=== PATIENT | female | born 1955 | race Caucasian/White ===

== ENCOUNTER 2022-09-11 13:43 | Outpatient (CLI) | payer MEDICARE, BC, SELFPAY ==
--- NOTE | 2022-09-11 14:00 | CRLHL7_ITS ---
For Patients: As a result of the Century Cures Act, medical imaging exams and procedure reports are released immediately into your electronic medical record. You may view this report before your referring provider. If you have questions, please contact your health care provider. DXA BONE MINERAL DENSITY STUDY Reason for exam: Osteoporosis. Current height (in): 67. Weight (lb): 130. Menopause age: 43. Ethnicity: White. 1. Have you had a previous hip or vertebral fracture? No. 2. Have you had any fractures during your adult life which did not result from significant trauma (e.g., auto accident)? No. 3. Did either of your parents have a hip fracture? No. 4. Do you smoke? No. 5. Have you ever taken Glucocorticoids? No. 6. Do you have rheumatoid arthritis? No. 7. Do you have secondary osteoporosis? No. 8. Do you drink 3 or more alcoholic drinks per day? No. 9. Are you being treated for osteoporosis? Yes. 10. Have you ever taken any of the following medications: Actonel, Evista, Fosamax, Miacalcin, Reclast, Boniva, Forteo, HRT (i.e. estrogen/hormone therapy), Protelos, Prolia, Vitamin D, Calcium, other ??? please specify. ANSWER: Yes, Fosamax, vitamin D, calcium, HRT. 11. Do you have any of the following medical conditions: Anorexia or bulimia, asthma or emphysema, end stage renal disease, hyperparathyroidism, any seizure disorders, cancer, inflammatory bowel diseases, hysterectomy, other ??? please specify. ANSWER: Yes, cancer, hysterectomy. 12. What was your maximum height (inches)? 67.5. 13. Do you perform weight bearing exercise regularly? Yes. 14. Do you regularly consume dairy products? No. 15. Do you drink caffeinated beverages? Yes. 16. At what age did your period start? 14. 17. Are you premenopausal? No. 18. How many full term pregnancies have you had? 2. 19. Have you ever missed your period for more than 6 months in a row (not including or menopause)? Yes. TECHNIQUE: Bone mineral density study was performed using the [facility]. FINDINGS: The results of the study expressed as bone mineral density (BMD) are as follows: Lumbar spine L1 to L4: BMD: 0.530 g/cm2. T-score: -4.7. Z-score: -2.7. Neck Left: BMD: 0.538 g/cm2. T-score: -2.8. Z-score: -1.1. Right: BMD: 0.538 g/cm2. T-score: -2.8. Z-score: -1.1. Total Left: BMD: 0.644 g/cm2. T-score: -2.4. Z-score: -1.0. Right: BMD: 0.642 g/cm2. T-score: -2.5. Z-score: -1.1 IMPRESSION: Osteoporosis. *Comparison exams done prior to 04/2020 were performed on different unit, [employer]. Arpit Escobar M.D. Diagnostic/Nuclear Medicine Radiologist [email or web address] LUCY/Dictated by: Arpit Escobar MD @ 09/11/2022 8:16:00 PM (Electronically Signed)
== END 2022-09-11 13:44 | disposition home or self-care (01) ==
LOC: RAD 13:43
PROVIDERS: PCP Internal Medicine; Visit Provider Internal Medicine
DX: M81.0 Age-related osteoporosis without current pathological fracture (principal)
CPT/HCPCS: 77080

== ENCOUNTER 2023-07-02 09:00 | Outpatient (RCR) | payer MEDICARE, BC, SELFPAY ==
--- NOTE | 2023-05-13 18:59 | PT.OPEX ---
[facility] Eval PT [facility] Outpatient Eval Start: 12/20/22 09:47 Freq: Status: Active Protocol: Document 05/13/23 09:59 ENM (Rec: 05/13/23 16:40 ENM [id number]) E-signed By Deidra Lizarraga DPT Physical Therapy Outpatient Evaluation Insurance Information Recert Due Date 08/05/23 Insurance Name Medicare B Medical Diagnosis bursitis of right shoulder Treating Diagnosis right shoulder pain, decreased shoulder ROM, decreased shoulder strength Referring MD Ramirez Subjective Subjective Patient presents to PT for complaints of right shoulder pain. She had an xray with no significant findings. Had an MRI which showed increased interstitial signal within the supraspinatus, without high- grade partial-thickness or full-thickness tearing. Patient states that pains are not present in the middle of the night and it isn't as often now. She was initially seen in PT back in December for shoulder pains and has continued with her exercises. Has no issues with reaching into the cupboards now but will feel a discomfort with reaching behind the back or taking clothes on/off. Pains are well managed but she often avoids aggravating movements. Previous HEP that she has been keeping up includes shoulder IR and ext AAROM with cane, bent over row, scaption with weight, shoulder flexion with weight, scap retract with ER Pain Comments at its best: 0-1/10 at its worse: 2/10 easing: rest aggravating: reaching behind the back Current Work Status Retired Objective Other/Pertinent Objective ROM: AROM shoulder flexion L 154 R 152 abduction L 163 R 167 IR L T4 R T9 + for pain ER base of skull cross body + for pain on R passive shoulder IR no pain at 0 deg, + for pain at 90 passive ER painful at 0 deg and 90s degs Cervical flexion, ext, SB, ROT WNL Strength: shoulder flexion L 4+/5 R 5/5 shoulder abduction 5/5 B shoulder IR0 L 5/5 R + for pain 4+/5 shoulder ER0 L 5/5 R + for pain 4+/5 similar pain and weakness ER at 90 degs Trap testing I 4-/5 B + for pain on R T 3+/5 B Palpation/joint mobility: posterior and inferior glide of GHJ normal mobility on L, less mobile with posterior glide of R GHJ on R compared to L + for pain with palpation of anterior and medial right shoulder Special tests: joby ayala - open can - empty can- obriens + for pain B, slightly less pain with ER Functional Test Performed & Score SPADI: pain 8/50 16% disability total Assessment Assessment/Impression Patient is a 67 year old female presenting with right shoulder pain. She was seen in PT earlier this year for similar pains and has continued to work on her home programs. Pains are less overall and do not limit her ability to reach or sleep at night anymore. Their primary complaint is of pain that is still present when reaching behind her back or having to don/doff her jacket. Xray negative for significant findings and MRI showed tendinopathy of supraspinatus. Upon assessment patients concordant pains brought on with active and passive shoulder IR, cross body adduction and obriens shoulder special tests. Patient tender to palpation along anterior and medial right shoulder. Pain and weakness noted with shoulder IR and ER MMT at zero and 90 degs of abduction. Noted global scapular weakness with trapezius testing most significant in middle trap. Anai would greatly benefit from skilled PT to address impairments stated above in order to perform all self cares/ADLS and household duties without significant discomfort or difficulty. Primary Functional Limitations getting clothes on/off, reaching behind the back Plan of Care Rehabilitation Potential Good Physical Therapy Goals In 4-6 visits: 1. Patient will be IND with HEP and self management of symptoms 2. Patient will display pain free functional right shoulder ROM within 2 levels of contralateral side to perform all self cares and ADLS without significant discomfort or difficulty 3. Patient will display improved postures and scapular engagement with overhead household activities to decrease risk of reoccurrence of symptoms 4. Patient will be able to get jacket on/off without pain 5/ 7 days of the week to progress toward PLOF Coordination/Communication With Referral Source Treatment Plan/Direct Interventions Electrical Stimulation,Ice/ Cold/Vasopneumatic,Joint Mobilization,Manual Therapy, Neuromuscular Re-ed,Self-Care/ Home Management,Therapeutic Activities,Therapeutic Exercises Frequency/Duration 1x a week for 4-6 visits Patient Will Be Discharged From Therapy Completion of LTG(s), Independent w/HEP Evaluation Billing Untimed Code Treatment Minutes 25 Complexity Low Certification Information Initial Certification Date 05/13/23 Ending Certification Date 08/05/23 Provider Signature Shows Agreement With POC & Medical Necessity Physician Signature & Date Requested Please Sign/Date Here Physician Comment/Change : Physician NPI Number #
== END 2023-07-21 14:34 | disposition home or self-care (01) ==
PROVIDERS: PCP Internal Medicine; Visit Provider Internal Medicine
DX: M75.21 Bicipital tendinitis, right shoulder (principal); M67.911 Unspecified disorder of synovium and tendon, right shoulder; M75.51 Bursitis of right shoulder; M25.511 Pain in right shoulder; R53.1 Weakness; Z74.09 Other reduced mobility; Z51.89 Encounter for other specified aftercare
CPT/HCPCS: 97110; 97140; 97161

== ENCOUNTER 2023-08-25 08:15 | Outpatient (CLI) | payer MEDICARE, BC, SELFPAY | END 2023-08-25 08:16 | disposition home or self-care (01) | LOC: NFLDREF 08-28 10:17 | PROVIDERS: PCP Internal Medicine; Referring Provider Internal Medicine; Visit Provider Internal Medicine | DX: M81.0 Age-related osteoporosis without current pathological fracture (principal) | CPT/HCPCS: 82306 ==

== ENCOUNTER 2023-11-27 11:12 | Outpatient (CLI) | payer MEDICARE, BC, SELFPAY ==
--- NOTE | 2023-11-27 11:30 | CRLHL7_ITS ---
For Patients: As a result of the Century Cures Act, medical imaging exams and procedure reports are released immediately into your electronic medical record. You may view this report before your referring provider. If you have questions, please contact your health care provider. BILATERAL SCREENING MAMMOGRAM WITH COMPUTER-AIDED DETECTION AND TOMOSYNTHESIS TECHNIQUE: CC and MLO views were obtained. These mammographic images have been obtained using full-field digital technique. These mammographic images were interpreted with the benefit of computer-aided detection. Breast Tomosynthesis was used in this interpretation. COMPARISON FILM: 08/14/22, 08/10/21, 08/02/20. FINDINGS: There are scattered areas of fibroglandular density. IMPRESSION: There is no radiographic evidence for malignancy. ASSESSMENT: BI-RADS Category 1: Negative RECOMMENDATION: Routine screening mammogram in 1 year. A lay language report of this examination will be provided to the patient. Angelo Carter M.D. Diagnostic Radiologist [email or web address] SP/Dictated by: Angelo Carter MD @ 12/02/2023 10:57:00 AM (Electronically Signed)
== END 2023-11-27 11:13 | disposition home or self-care (01) ==
LOC: MAMMO 11:13
PROVIDERS: PCP Internal Medicine; Visit Provider Internal Medicine
DX: Z12.31 Encounter for screening mammogram for malignant neoplasm of breast (principal)
CPT/HCPCS: 77063; 77067

== ENCOUNTER 2024-04-14 09:54 | Outpatient (CLI) | payer MEDICARE, BC, SELFPAY | END 2024-04-14 09:55 | disposition home or self-care (01) | PROVIDERS: PCP Internal Medicine; Visit Provider Registered Nurse | DX: R10.9 Unspecified abdominal pain (principal) | CPT/HCPCS: 80053; 83690; 86140; 87086 ==

== ENCOUNTER 2024-05-11 15:00 | Outpatient (CLI) | payer MEDICARE, BC, SELFPAY | END 2024-05-11 15:01 | disposition home or self-care (01) | PROVIDERS: PCP Internal Medicine; Visit Provider Internal Medicine | DX: R10.13 Epigastric pain (principal) | CPT/HCPCS: 84132; 84450 ==

== ENCOUNTER 2024-08-31 08:00 | Outpatient (CLI) | payer MEDICARE, BC, SELFPAY | END 2024-08-31 08:01 | disposition home or self-care (01) | PROVIDERS: PCP Internal Medicine; Referring Provider Internal Medicine; Visit Provider Internal Medicine | DX: M81.0 Age-related osteoporosis without current pathological fracture (principal) | CPT/HCPCS: 82306 ==

== ENCOUNTER 2024-09-29 14:14 | Outpatient (CLI) | payer MEDICARE, BC, SELFPAY ==
--- NOTE | 2024-09-29 14:30 | CRLHL7_ITS ---
For Patients: As a result of the Century Cures Act, medical imaging exams and procedure reports are released immediately into your electronic medical record. You may view this report before your referring provider. If you have questions, please contact your health care provider. DXA BONE MINERAL DENSITY STUDY Reason for exam: Osteoporosis. Current height (in): 67. Weight (lb): 135. Menopause age: 43. Ethnicity: White. 1. Have you had a previous hip or vertebral fracture? No. 2. Have you had any fractures during your adult life which did not result from significant trauma (e.g., auto accident)? No. 3. Did either of your parents have a hip fracture? No. 4. Do you smoke? No. 5. Have you ever taken Glucocorticoids? No. 6. Do you have rheumatoid arthritis? No. 7. Do you have secondary osteoporosis? No. 8. Do you drink 3 or more alcoholic drinks per day? No. 9. Are you being treated for osteoporosis? Yes. 10. Have you ever taken any of the following medications: Actonel, Evista, Fosamax, Miacalcin, Reclast, Boniva, Forteo, HRT (i.e., estrogen/hormone therapy), Protelos, Prolia, Vitamin D, Calcium, other ??? please specify. ANSWER: Yes, Fosamax (i.e., alendronate), vitamin D, and calcium. 11. Do you have any of the following medical conditions: Anorexia or bulimia, asthma or emphysema, end stage renal disease, hyperparathyroidism, any seizure disorders, cancer, inflammatory bowel diseases, hysterectomy, other ??? please specify. ANSWER: Yes, cancer and hysterectomy. 12. What was your maximum height (inches)? 67.5. 13. Do you perform weight bearing exercise regularly? Yes. 14. Do you regularly consume dairy products? No. 15. Do you drink caffeinated beverages? Yes. 16. At what age did your period start? 14. 17. Are you premenopausal? No. 18. How many full-term pregnancies have you had? 2. 19. Have you ever missed your period for more than 6 months in a row (not including or menopause)? Yes. TECHNIQUE: Bone mineral density study was performed using the [employer]. FINDINGS: The results of the study expressed as bone mineral density (BMD) are as follows: Lumbar spine L1 to L4: BMD: 0.584 g/cm2. T-score: -4.2. Z-score: -2.1 Neck Left: BMD: 0.560 g/cm2. T-score: -2.6. Z-score: -0.8 Right: BMD: 0.547 g/cm2. T-score: -2.7. Z-score: -0.9 Total Left: BMD: 0.630 g/cm2. T-score: -2.6. Z-score: -1.0 Right: BMD: 0.652 g/cm2. T-score: -2.4. Z-score: -0.9 IMPRESSION: Osteoporosis. *Comparison exams done prior to 04/2020 were performed on different unit, [employer]. COMPARISON: Compared with scan of 09/11/2022, the bone mineral density has increased by 10.2 percent at the spine and decreased by 0.3 percent at the hip. Angelo Carter M.D. Diagnostic Radiologist [email or web address] simpson/Dictated by: Angelo Carter MD @ 10/01/2024 12:27:00 PM (Electronically Signed)
== END 2024-09-29 14:15 | disposition home or self-care (01) ==
LOC: RAD 14:15
PROVIDERS: PCP Internal Medicine; Visit Provider Internal Medicine
DX: M81.0 Age-related osteoporosis without current pathological fracture (principal)
CPT/HCPCS: 77080

== ENCOUNTER 2024-10-12 14:15 | Outpatient (CLI) | payer MEDICARE, BC, SELFPAY | END 2024-10-12 14:16 | disposition home or self-care (01) | LOC: NFLDREF 10-13 10:50 | PROVIDERS: PCP Internal Medicine; Referring Provider Internal Medicine; Visit Provider Internal Medicine | DX: M81.0 Age-related osteoporosis without current pathological fracture (principal) | CPT/HCPCS: 82310; 82565 ==

== ENCOUNTER 2024-10-19 14:11 | Outpatient (RCR) | payer MEDICARE, BC, SELFPAY ==
--- NOTE | 2024-10-15 14:13 | PC.NURSE ---
Diagnosis: Osteoporosis
--- NOTE | 2024-10-15 14:29 | URNOTE ---
Request received for authorization for Zolendronic Acid (Reclast) ([id number]). Prior authorization is not required as services are based on medical necessity and follow Medicare guidelines.
[2024-10-19 14:24] VITALS: BP 122/85; PULSE 72; RESP 16; TEMP 36.6; O2SAT 98
[2024-10-19] MEDS: ZOLEDRONIC ACID 5 mg/100 ml 100 ML 220 MG IVPB (14:48)
== END 2025-04-17 23:59 | disposition home or self-care (01) ==
LOC: CCIC 14:11
PROVIDERS: PCP Internal Medicine; Referring Provider Internal Medicine; Visit Provider Clinical Nurse Specialist
DX: M81.0 Age-related osteoporosis without current pathological fracture (principal)
CPT/HCPCS: 96374; J3489

== ENCOUNTER 2024-12-07 14:00 | Outpatient (CLI) | payer MEDICARE, BC, SELFPAY ==
--- NOTE | 2024-12-07 14:00 | CRLHL7_ITS ---
For Patients: As a result of the Cures Act, medical imaging exams and procedure reports are released immediately into your electronic medical record. You may view this report before your referring provider. If you have questions, please contact your health care provider. BILATERAL SCREENING MAMMOGRAM WITH COMPUTER-AIDED DETECTION AND TOMOSYNTHESIS TECHNIQUE: CC and MLO views were obtained. These mammographic images have been obtained using full-field digital technique. These mammographic images were interpreted with the benefit of computer-aided detection. Breast Tomosynthesis was used in this interpretation. COMPARISON FILM: 11/27/23, 08/14/22, 08/10/21. FINDINGS: There are scattered areas of fibroglandular density IMPRESSION: There is no radiographic evidence for malignancy. ASSESSMENT: BI-RADS Category 1: Negative RECOMMENDATION: Routine screening mammogram in 1 year. A lay language report of this examination will be provided to the patient. Angelo Carter M.D. Diagnostic Radiologist [email or web address] Transcribed: 2:55 [email or web address]/Dictated by: Angelo Carter MD @ 12/08/2024 9:22:00 AM (Electronically Signed)
== END 2024-12-07 14:01 | disposition home or self-care (01) ==
LOC: MAMMO 14:01
PROVIDERS: PCP Internal Medicine; Visit Provider Internal Medicine
DX: Z12.31 Encounter for screening mammogram for malignant neoplasm of breast (principal)
CPT/HCPCS: 77063; 77067

== ENCOUNTER 2025-09-06 08:20 | Outpatient (CLI) | payer MEDICARE, BC, SELFPAY | END 2025-09-06 08:21 | disposition home or self-care (01) | LOC: NFLDREF 09-08 15:55 | PROVIDERS: PCP Internal Medicine; Referring Provider Internal Medicine; Visit Provider Internal Medicine | DX: M81.0 Age-related osteoporosis without current pathological fracture (principal) | CPT/HCPCS: 82306; 82310; 82565 ==